=== PATIENT | female | born 1990 | race Hispanic/Latino ===

== ENCOUNTER 2018-10-05 00:59 | Emergency (ER) | payer OTHER ==
[~2018-10-05] VITALS: Ht 157.5 cm; Wt 86.2 kg
[2018-10-05 02:11] VITALS: BP 133/84
== END 2018-10-05 02:22 | disposition home or self-care (01) ==
LOC: ER 00:59
DX: K29.00 Acute gastritis without bleeding (principal)
CPT/HCPCS: 99283